=== PATIENT | male | born 1955 | race African-American/Black ===

== ENCOUNTER 2018-08-30 10:51 | Inpatient (IN) | payer OTHER ==
[~2018-08-30] VITALS: Ht 193 cm; Wt 170.3 kg
[2018-08-30] MEDS ORDERED: ONDANSETRON PF 4 MG/2 ML VIAL. IV ONE (11:15)
[2018-08-30] MEDS ORDERED: ONDANSETRON PF 4 MG/2 ML VIAL. ONE (11:18)
[2018-08-30] MEDS ORDERED: IOHEXOL 350 MG/ML 100 ML VIAL. IV ONE (11:30)
[2018-08-30 11:40] LABS: BASO % 1 % (0-3); EOS % 1 % (0-3); HEMATOCRIT 48.3 % (39.0-53.0); HEMOGLOBIN 16.2 g/dL (13.0-17.5); LYMPH # 0.9 x10^3/uL (1.0-4.8); LYMPH % 17 % (24-48); MEAN CORPUSCULAR HEMOGLOBIN 31 pg (25-35); MEAN CORPUSCULAR HGB CONC 34 g/dL (31-37); MEAN CORPUSCULAR VOLUME 93 fL (79-100); MONO # 0.4 x10^3/uL (0.0-1.1); MONO % 8 % (0-9); NEUT # 3.9 x10^3uL (1.8-7.7); NEUT % 74 % (31-73); PLATELET COUNT 180 x10^3/uL (140-400); RED BLOOD COUNT 5.18 x10^6/uL (4.30-5.70); RED CELL DISTRIBUTION WIDTH 13.4 % (11.5-14.5); WHITE BLOOD COUNT 5.2 x10^3/uL (4.0-11.0)
[2018-08-30] MEDS ORDERED: HYDROmorphone PF 1 MG/ML DISP.SYRIN ONE (11:45)
[2018-08-30 12:03] LABS: ALBUMIN 3.7 g/dL (3.4-5.0); ALBUMIN/GLOBULIN RATIO 0.9 (1.0-1.7); CALCIUM 9.7 mg/dL (8.5-10.1); CREATININE 0.9 mg/dL (0.7-1.3); GFR 86.1; POTASSIUM 4.3 mmol/L (3.5-5.1); TOTAL BILIRUBIN 1.1 mg/dL (0.2-1.0); TOTAL PROTEIN 7.8 g/dL (6.4-8.2)
[2018-08-30] MEDS ORDERED: HYDROmorphone PF 1 MG/ML DISP.SYRIN IV ONE (12:10)
--- NOTE | 2018-08-30 12:29 | RAD ---
Exam performed: CT angiogram chest, abdomen and pelvis. Date: 08/30/2018.. Comparison: None available Indication: Severe acute right abdominal pain Technique: Contiguous helical acquisitions are obtained through the chest, abdomen and pelvis during intravenous administration of [ 100 ] cc of [ Omnipaque 350 ] using the CT angiogram protocol . [Sagittal and coronal reformatted images and ] 3-D rotating MIP images were obtained and reviewed Findings: The study is somewhat limited for evaluation of abdominal aorta due to suboptimal contrast and streak artifact emanating from spinal hardware. The thoracic and abdominal aorta appears normal in course and caliber without evidence of aneurysm or gross dissection. The pulmonary arteries appear grossly unremarkable although limited in evaluation for pulmonary embolism due to poor opacification. No mediastinal or hilar adenopathy is seen. The lungs are well-expanded and clear. No infiltrates, effusion or pneumothorax is seen. There is elevation of the left hemidiaphragm, likely chronic. There is mild dilation of a few loops of small bowel in the left upper and mid abdomen without a definite transition zone. The liver, spleen and pancreas appear grossly normal. The gallbladder is distended. Both adrenal glands and bilateral kidneys are normal in size with symmetric excretion of contrast via both kidneys. IVC filter. No hydronephrosis or nephrolithiasis is seen. Large bowel loops appear grossly unremarkable. Appendix is not clearly seen. No inflammatory changes seen in the right lower quadrant. The urinary bladder is partially decompressed. The prostate gland, seminal vesicles and rectum appear normal. Postoperative changes of posterior spinal fusion seen in the lumbar spine with bilateral spinal rods. There are degenerative changes about both sacroiliac joints with spondylotic changes throughout the thoracic spine. Impression: 1. Evaluation of abdominal aorta is somewhat limited due to lack of opacification and extensive streak artifact emanating from the spinal hardware. No convincing evidence of thoracoabdominal aortic aneurysm is identified. Evaluation for abdominal aortic dissection is limited 2. Mild dilation of several small bowel loops in this central and left upper abdomen without a definite transition. Focal ileus or developing partial small bowel obstruction suspected. 3. No acute findings seen in the chest. PQRS Compliance Statement: One or more of the following individualized dose reduction techniques were utilized for this examination: 1. Automated exposure control 2. Adjustment of the mA and/or kV according to patient size 3. Use of iterative reconstruction technique Electronically signed by: Smita Shi MD (08/30/2018 12:25 PM) [facility]
--- NOTE | 2018-08-30 12:46 | PHYS DOC ---
Past History Past Medical History: Other Past Surgical History: Other Smoking: Non-smoker Alcohol Use: None Drug Use: None Adult General Chief Complaint Chief Complaint: abdominal pain HPI HPI Patient is a 62 year old male who presents with draining of severe abdominal pain. Patient states he had gradual onset of lower abdominal pain since a.m. today as a constant and sharp pain with radiation to upper abdomen and associated with nausea and 3 episodes of well firmed bowel movement. Patient rated his pain 10 over 10 and denies history of abdominal pain. Patient denies chest pain, shortness of breath, fever and chills, cough and congestion. Patient is diaphoretic and in severe pain and history is limited because of medical condition. Review of Systems Review of Systems Constitutional: Denies fever or chills [] Eyes: Denies change in visual acuity, redness, or eye pain [] HENT: Denies nasal congestion or sore throat [] Respiratory: Denies cough or shortness of breath [] Cardiovascular: No additional information not addressed in HPI [] GI: Reports abdominal pain, nausea, denies vomiting, bloody stools or diarrhea [ ] : Denies dysuria or hematuria [] Musculoskeletal: Denies back pain or joint pain [] Integument: Denies rash or skin lesions [] Neurologic: Denies headache, focal weakness or sensory changes [] Endocrine: Denies polyuria or polydipsia [] All other systems were reviewed and found to be within normal limits, except as documented in this note. Current Medications Current Medications Current Medications Medications (Trade) Dose Ordered Sig/Yuniel Start Time Stop Time Status Last Admin Dose Admin Fentanyl Citrate (Fentanyl 2ml Vial) 50 mcg 1X ONCE 08/30/18 11:15 08/30/18 11:23 DC 08/30/18 11:19 50 MCG Hydromorphone HCl (Dilaudid) 1 mg 1X ONCE 08/30/18 12:10 08/30/18 12:11 DC 08/30/18 11:48 1 MG Iohexol (Omnipaque 350 Mg/ml) 100 ml 1X ONCE 08/30/18 11:30 08/30/18 11:31 DC 08/30/18 11:33 100 ML Ondansetron HCl (Zofran) 4 mg 1X ONCE 08/30/18 11:15 08/30/18 11:23 DC 08/30/18 11:21 4 MG Allergies Allergies Allergies Coded Allergies Type Severity Reaction Last Updated Verified moxifloxacin Allergy Unknown 08/30/18 Yes Physical Exam Physical Exam Constitutional: Well developed, well nourished, moderate acute distress, non- toxic appearance. [] HENT: Normocephalic, atraumatic, oropharynx moist, no oral exudates, nose normal. [] Eyes: PERRLA, EOMI, conjunctiva normal, no discharge. [] Neck: Normal range of motion, no tenderness, supple, no stridor. [] Cardiovascular:Heart rate regular rhythm, no murmur [] Lungs & Thorax: Bilateral breath sounds clear to auscultation [] Abdomen: Mildly distended with gas, Bowel sounds hyperactive, guarding in left upper and left lower quadrant, soft, no tenderness, no masses, no pulsatile masses. [] Skin: Diaphoretic, no erythema, no rash. [] Back: No tenderness, no CVA tenderness. [] Extremities: No tenderness, no cyanosis, no clubbing, ROM intact, no edema. [] Neurologic: Alert and oriented X 3, normal motor function, normal sensory function, no focal deficits noted. [] Psychologic: Affect normal, judgement normal, mood normal. [] Current Patient Data Vital Signs Vital Signs Date Time Temp Pulse Resp B/P (MAP) Pulse Ox O2 Delivery O2 Flow Rate FiO2 08/30/18 12:14 88 26 178/91 (120) 99 Room Air 08/30/18 11:05 98.3 Lab Results Laboratory Tests Test 08/30/18 11:12 White Blood Count 5.2 x10^3/uL (4.0-11.0) Red Blood Count 5.18 x10^6/uL (4.30-5.70) Hemoglobin 16.2 g/dL (13.0-17.5) Hematocrit 48.3 % (39.0-53.0) Mean Corpuscular Volume 93 fL (79-100) Mean Corpuscular Hemoglobin 31 pg (25-35) Mean Corpuscular Hemoglobin Concent 34 g/dL (31-37) Red Cell Distribution Width 13.4 % (11.5-14.5) Platelet Count 180 x10^3/uL (140-400) Neutrophils (%) (Auto) 74 % (31-73) H Lymphocytes (%) (Auto) 17 % (24-48) L Monocytes (%) (Auto) 8 % (0-9) Eosinophils (%) (Auto) 1 % (0-3) Basophils (%) (Auto) 1 % (0-3) Neutrophils # (Auto) 3.9 x10^3uL (1.8-7.7) Lymphocytes # (Auto) 0.9 x10^3/uL (1.0-4.8) L Monocytes # (Auto) 0.4 x10^3/uL (0.0-1.1) Eosinophils # (Auto) 0.0 x10^3/uL (0.0-0.7) Basophils # (Auto) 0.0 x10^3/uL (0.0-0.2) Prothrombin Time 15.1 SEC (9.4-11.4) H Prothrombin Time INR 1.5 (0.9-1.1) H PTT 29 SEC (23-33) Sodium Level 140 mmol/L (136-145) Potassium Level 4.3 mmol/L (3.5-5.1) Chloride Level 107 mmol/L (98-107) Carbon Dioxide Level 24 mmol/L (21-32) Anion Gap 9 (6-14) Blood Urea Nitrogen 13 mg/dL (8-26) Creatinine 0.9 mg/dL (0.7-1.3) Estimated GFR (Cockcroft-Gault) 86.1 BUN/Creatinine Ratio 14 (6-20) Glucose Level 101 mg/dL (70-99) H Lactic Acid Level 1.5 mmol/L (0.4-2.0) Calcium Level 9.7 mg/dL (8.5-10.1) Total Bilirubin 1.1 mg/dL (0.2-1.0) H Aspartate Amino Transferase (AST) 17 U/L (15-37) Alanine Aminotransferase (ALT) 22 U/L (16-63) Alkaline Phosphatase 147 U/L (46-116) H Creatine Kinase 211 U/L (39-308) Troponin I Quantitative < 0.017 ng/mL (0-0.055) Total Protein 7.8 g/dL (6.4-8.2) Albumin 3.7 g/dL (3.4-5.0) Albumin/Globulin Ratio 0.9 (1.0-1.7) L Lipase 121 U/L (73-393) EKG EKG EKG interpreted by me. EKG at 1109 showed normal sinus rhythm at rate of 75, no specific EKG abnormalities.[] Radiology/Procedures Radiology/Procedures [address] [address] IMAGING REPORT Signed PATIENT: AVELINO YOU ACCOUNT: [id number] : 1955 LOCATION: ER AGE: 62 SEX: M EXAM STATUS: PRE ER ORD. PHYSICIAN: CAM VARGAS MD REASON: severe abdominal pain, possible dissection PROCEDURE: CT ANGIO CHEST ABD PELVIS Exam performed: CT angiogram chest, abdomen and pelvis. Date: 08/30/2018.. Comparison: None available Indication: Severe acute right abdominal pain Technique: Contiguous helical acquisitions are obtained through the chest, abdomen and pelvis during intravenous administration of [ 100 ] cc of [ Omnipaque 350 ] using the CT angiogram protocol . [Sagittal and coronal reformatted images and ] 3-D rotating MIP images were obtained and reviewed Findings: The study is somewhat limited for evaluation of abdominal aorta due to suboptimal contrast and streak artifact emanating from spinal hardware. The thoracic and abdominal aorta appears normal in course and caliber without evidence of aneurysm or gross dissection. The pulmonary arteries appear grossly unremarkable although limited in evaluation for pulmonary embolism due to poor opacification. No mediastinal or hilar adenopathy is seen. The lungs are well-expanded and clear. No infiltrates, effusion or pneumothorax is seen. There is elevation of the left hemidiaphragm, likely chronic. There is mild dilation of a few loops of small bowel in the left upper and mid abdomen without a definite transition zone. The liver, spleen and pancreas appear grossly normal. The gallbladder is distended. Both adrenal glands and bilateral kidneys are normal in size with symmetric excretion of contrast via both kidneys. IVC filter. No hydronephrosis or nephrolithiasis is seen. Large bowel loops appear grossly unremarkable. Appendix is not clearly seen. No inflammatory changes seen in the right lower quadrant. The urinary bladder is partially decompressed. The prostate gland, seminal vesicles and rectum appear normal. Postoperative changes of posterior spinal fusion seen in the lumbar spine with bilateral spinal rods. There are degenerative changes about both sacroiliac joints with spondylotic changes throughout the thoracic spine. Impression: 1. Evaluation of abdominal aorta is somewhat limited due to lack of opacification and extensive streak artifact emanating from the spinal hardware. No convincing evidence of thoracoabdominal aortic aneurysm is identified. Evaluation for abdominal aortic dissection is limited 2. Mild dilation of several small bowel loops in this central and left upper abdomen without a definite transition. Focal ileus or developing partial small bowel obstruction suspected. 3. No acute findings seen in the chest. RS Compliance Statement: One or more of the following individualized dose reduction techniques were utilized for this examination: 1. Automated exposure control 2. Adjustment of the mA and/or kV according to patient size 3. Use of iterative reconstruction technique Electronically signed by: Smita Shi MD (08/30/2018 12:25 PM) [place] [id number] DICTATED AND SIGNED BY: SMITA SHI MD DATE: 08/30/18 1214 CC: CAM VARGAS MD ~ Course & Med Decision Making Course & Med Decision Making Pertinent Labs and Imaging studies reviewed. (See chart for details) Evaluation of patient in ER showed 62-year-old male patient with complaining of severe abdominal pain with nausea. Patient had diaphoresis and elevation of blood pressure of 220 without history of hypertension. Patient treated with fentanyl and Zofran and Dilaudid and felt better with improvement of blood pressure to 170s. CT angio chest and abdomen and pelvis only showed small bowel obstruction. Dr. Ibanez accepted admission at 1235. Dragon Disclaimer Dragon Disclaimer This electronic medical record was generated, in whole or in part, using a voice recognition dictation system. Departure Departure: Impression: Primary Impression: Partial small bowel obstruction Additional Impressions: Hypertensive urgency History of blood clotting factor deficiency Disposition: ADMITTED INPATIENT (at 1236) Admitting Physician: Juanito Ibanez (accepted admission at 1235) Condition: GUARDED Critical Care Time Critical care time was 70 minutes exclusive of procedures. Problem Qualifiers CAM VARGAS MD Aug 30, 2018 12:46
[2018-08-30 13:13] LABS: CLARITY,URINE HAZY; COLOR,URINE STRAW
[2018-08-30 13:14] LABS: BACTERIA,URINE 0 /HPF (0-FEW); BILIRUBIN,URINE NEG (NEG); GLUCOSE,URINE NEG (NEG); NITRITE,URINE NEG (NEG); SQUAMOUS EPITHELIAL CELL,UR OCC /LPF; UROBILINOGEN,URINE 0.2 mg/dL (0.2 mg/dL); WBC,URINE 0 /HPF (0-4)
[2018-08-30 14:35] VITALS: BP 173/109
[2018-08-30] MEDS: IV NORMAL SALINE 1,000ML 1,000 ML IV SCH ×2 (14:54→21:17)
[2018-08-30] MEDS ORDERED: WARF10TA45 PO (15:08)
[2018-08-30] MEDS: HYDROmorphone PF 2 MG/ML VIAL IV PRN ×3 (15:29→21:18)
[2018-08-30] MEDS ORDERED: ONDANSETRON PF 4 MG/2 ML VIAL. IV PRN (15:30)
[2018-08-30 16:29] LABS: BARBITURATES NEG (NEG); BENZODIAZEPINES NEG (NEG); CANNABINOIDS NEG (NEG); COCAINE NEG (NEG); METHADONE NEG (NEG); OPIATES NEG (NEG); PHENCYCLIDINE NEG (NEG)
[2018-08-30 16:30] LABS: C REACTIVE PROTEIN 6.3 mg/L (0-3.3)
[2018-08-30 16:32] LABS: AMPHETAMINE/METHAMPHETAMINE NEG (NEG)
--- NOTE | 2018-08-30 17:07 | EKG ---
[address] [address] Test Date: 2018-08-30 Test Time: 16:24:31 Pat Name: AVELINO YOU Department: Room: Gender: M Safety Companion: ERNA : 1955 Requested By: CAM VARGAS Order Number: [id number] Reading MD: Measurements Intervals [place] Rate: 103 P: 39 [place]: 130 QRS: 33 QRSD: 76 T: 19 QT: 328 QTc: 432 Interpretive Statements SINUS TACHYCARDIA OTHERWISE NORMAL ECG RI6.01 No previous ECG available for comparison
--- NOTE | 2018-08-30 17:17 | EKG ---
[address] [address] Test Date: 2018-08-30 Test Time: 11:09:19 Pat Name: AVELINO YOU Department: Room: 113 A Gender: M Pick Up Truck Driver: ERNA : 1955 Requested By: SOPHIE MAGDALENO Order Number: [id number] Reading MD: Quentin Rich MD Measurements Intervals [place] Rate: 75 P: 48 [place]: 150 QRS: 23 QRSD: 80 T: 33 QT: 370 QTc: 416 Interpretive Statements SINUS RHYTHM Electronically Signed On 09-05-2018 9:21:40 SUBCONTRACT ADMINISTRATOR by Quentin Rich MD
[2018-08-30 20:05] VITALS: BP 123/88
[2018-08-30] MEDS: HEPARIN for SUB-Q USE 5,000 UNIT/ML VIAL. SQ SCH (21:23)
--- NOTE | 2018-08-30 22:03 | HP ---
ADMIT DATE: 08/30/2018 HISTORY OF PRESENT ILLNESS: A 62-year-old gentleman came in through the Emergency Room with severe abdominal pain. The patient had gradual lower abdominal pain since early in the morning with a sharp pain radiating to his upper abdomen associated with nausea and vomiting x 3, although he does have well-formed stools. He rates the pain as 10/10. He denied any melena, hematochezia, or hematemesis. He denied chest pain, shortness of breath, fever, chills, or diaphoresis. CT scan showed the possibility of small-bowel obstruction and as a result of that the patient was admitted to the hospital for further evaluation and treatment thereof for possible small-bowel obstruction. PAST MEDICAL HISTORY: Includes that of hypertension, orthopedic back surgery, bilateral knee surgeries, factor V Leiden clotting problems, chronic warfarin and an IVC filter. FAMILY HISTORY: Heart disease in mother. Mother also had cancer and grandmother had cancer. ALLERGIES: Adverse reaction to MOXIFLOXACIN. The patient is a full code. SOCIAL HISTORY: No history of smoking, alcohol, or drug use noted. REVIEW OF SYSTEMS: Outside of severe abdominal pain, denies any headaches, visual changes, blurred vision, double vision. Denies any melena, hematochezia, or hematemesis. Neurologically intact. The patient does have severe abdominal pain with nausea, vomiting as indicated, but does have a bowel movement. No neurologic deficits. He is able to urinate freely. PHYSICAL EXAMINATION: GENERAL: He is a very pleasant gentleman, in severe pain 9 to 10/10. VITAL SIGNS: Blood pressure 120/88, respiratory rate 20, pulse upwards of in the upper 90s, although initially his blood pressure was 193/100. He is afebrile, good respiratory effort swelling up to 26 on oxygen saturation. HEENT: The patient's head was atraumatic, normocephalic. Eyes: PERRLA without jaundice. Mouth and throat were normal. NECK: Supple, without JVD, carotid bruits. No thyromegaly. LUNGS: Diminished throughout, poor movement of air. CARDIOVASCULAR: Regular sinus rhythm. ABDOMEN: Markedly protuberant. It was soft, but firm not hard. Active bowel sounds. Tender in the left mid to left upper quadrant areas, slight guarding, but no rebounding, positive bowel sounds. No hepatosplenomegaly. EXTREMITIES: No clubbing, cyanosis, or edema. NEUROLOGIC: The patient was alert and oriented x 3. LABORATORY DATA: Inconclusive. His bilirubin is slightly elevated at 1.1, alkaline phosphatase 147. C-reactive protein 6.3. His white count was perfectly normal. Slight elevation of his D-dimer, otherwise his INR was slightly low at 1.5. CT scan as indicated demonstrated the possibility of either an ileus or beginning of the small-bowel obstruction and as result of this the patient was admitted to the hospital for pain medication, control of his pain as well as monitoring of his bowel obstruction and any evaluation that might need further indication beyond that. In any case, the patient was resting comfortably with the medication we are giving him and will make further evaluation on him as indicated. SOPHIE MAGDALENO MD DR: VANCE/ellen JOB#: [id number] / [id number]
[2018-08-31 00:01] VITALS: BP 138/78
[2018-08-31] MEDS: HYDROmorphone PF 2 MG/ML VIAL IV PRN ×7 (00:45→13:56)
[2018-08-31] MEDS: IV NORMAL SALINE 1,000ML 1,000 ML IV SCH ×2 (03:19→08:22)
[2018-08-31] MEDS: HEPARIN for SUB-Q USE 5,000 UNIT/ML VIAL. SQ SCH (05:39)
[2018-08-31 06:00] VITALS: BP 163/98
[2018-08-31 11:14] VITALS: BP 161/97
--- NOTE | 2018-08-31 14:15 | DS ---
DATE OF DISCHARGE: 08/31/2018 HOSPITAL COURSE: This 62-year-old gentleman came in through the Emergency Room with severe 10/10 abdominal pain primarily in the left lower quadrant area. The patient had a bowel movement the morning of admission. The patient did have some nausea and vomiting, but since then has not had any. He does require IV pain medication on a regular basis. The patient has a history of factor V Leiden. The patient's CT scan demonstrated severe ileus, possible early small-bowel obstruction, although since he has been here he has been on clear liquids and has not had any further problems there. The patient's labs are basically stable. However, the patient continues to have abdominal pain and requires at least a surgical consultation, which is not available at this facility. The patient will be transferred to [facility] per the request where they do have surgical consults and make further evaluation the possibility there. The patient's history of an IVC filter for factor V Leiden. He is on heparin temporarily as his INR is down. We are trying to bridge INR up to 2-3. In any case, the patient is resting fairly comfortably with IV pain medications. PHYSICAL EXAMINATION: VITAL SIGNS: Last blood pressure 160/97, respiratory rate 20, pulse 77, afebrile. The patient is alert and oriented. LUNGS: Clear. CARDIOVASCULAR: stable. ABDOMEN: Soft, diffuse tenderness in the left upper quadrant and lower quadrant area. The patient is somewhat improved from where it was yesterday, but still require surgical consultation not available at this facility at all. He will be transferred for higher level of care and surgical consult or GI consult whatever the hospitalist at the [facility] sees fit for evaluation. IMPRESSION: Possible small-bowel obstruction, severe abdominal pain, morbid obesity, factor V Leiden deficiency, hyperbilirubinemia, positive D-dimer, but he is on heparin and warfarin at this time. PLAN: Will be transferred via EMS. See MRAD. Activity as tolerated. REASON FOR TRANSFER: For surgical consultation and other care not available at this facility. SOPHIE MAGDALENO MD DR: VANCE/ellen JOB#: [id number] / [id number]
[2018-08-31] MEDS ORDERED: WARFARIN 6 MG TABLET. PO SCH (16:00)
== END 2018-08-31 14:00 | disposition short-term general hospital (02) | DRG 389 ==
LOC: ER 10:51 → 1 SOUTH 14:33
PROVIDERS: ADMIT Family Medicine; ATTEND Family Medicine
DX: K56.690 Other partial intestinal obstruction (principal); D68.51 Activated protein C resistance; I10 Essential (primary) hypertension; I16.0 Hypertensive urgency; Z79.01 Long term (current) use of anticoagulants; Z80.9 Family history of malignant neoplasm, unspecified; Z79.899 Other long term (current) drug therapy; Z88.1 Allergy status to other antibiotic agents; Z82.49 Family history of ischemic heart disease and other diseases of the circulatory system
CPT/HCPCS: 36415; 71275; 74174; 80053; 80307; 81001; 82150; 82550; 83605; 83690; 84484; 85025; 85379; 85610; 85730; 86140; 93005; 96374; 96375; 96376; J1170; J1644; J2405; J3010; Q9967; 99291-25; J7030